=== PATIENT | female | born 1945 ===

== ENCOUNTER 2017-09-02 07:55 | Day surgery (SDC) | payer MEDICARE, BC ==
[~2017-09-02 07:55] MED LIST: Acetaminophen 1,000 MG in Premix Bag 1 BAG IV SCH; Clindamycin Phosphate in D5W 50 ML ONE; Famotidine 20 MG/2 ML SDV IVPUSH SCH; Ketorolac 15 MG/ML SDV IVPUSH SCH; Scopolamine 1.5 MG Transdermal Patch TRDERM SCH
[2017-09-02] MEDS ORDERED: Tranexamic Acid 4,000 MG in Sodium Chloride 0.9% 100 ML IV SCH (08:00)
[2017-09-02] MEDS ORDERED: Clindamycin Phosphate 900 MG/6 ML SDV IV SCH (08:00)
[2017-09-02] MEDS ORDERED: Ropivacaine 49.25 ML, Ketorolac 30 MG, EPINEPHrine 0.5 MG, cloNIDine 80 MCG in Sodium C... INJECT SCH (08:00)
[2017-09-02] MEDS: oxyCODONE ER 10 MG TAB.ER PO SCH ×2 (08:19→20:34)
[2017-09-02] MEDS ORDERED: Midazolam 1 MG/ML 2 ML SDV ONE ×3 (08:31→08:33)
[2017-09-02] MEDS ORDERED: Lidocaine 2% 5 ML SDV ONE (08:32)
[2017-09-02] MEDS ORDERED: Propofol 200 MG/20 ML SDV ONE ×4 (08:32→08:33)
[2017-09-02] MEDS ORDERED: fentaNYL 100 MCG/2 ML SDV ONE ×2 (08:33)
--- NOTE | 2017-09-02 09:59 | PCM.PREANE ---
Preanesthetic Assessment - Anesthesia/Transfusion/Family Hx Anesthesia History: Prior Anesthesia Without Reaction Family History of Anesthesia Reaction: No Intubation History: Unknown - Review of Systems General: No Symptoms Pulmonary: No Symptoms Cardiovascular: No Symptoms Gastrointestinal: No Symptoms Neurological: No Symptoms Other: Reports: None - Physical Assessment NPO Status Date: 09/01/17 NPO Status Time: 21:00 O2 Sat by Pulse Oximetry: 98 Respiratory Rate: 16 Vital Signs: Last Vital Signs Temp 36.7 C 09/02/17 08:15 Pulse 69 09/02/17 08:15 Resp 16 09/02/17 08:15 BP 128/70 09/02/17 08:15 Pulse Ox 98 09/02/17 08:15 Height: 1.65 m Weight: 71.668 kg ASA Class: 2 Mental Status: Alert & Oriented x3 Airway Class: Mallampati = 2 Dentition: Reports: Normal Dentition Thyro-Mental Finger Breadths: 3 Mouth Opening Finger Breadths: 2 ROM/Head Extension: Full Lungs: Clear to Auscultation, Normal Respiratory Effort Cardiovascular: Regular Rate, Regular Rhythm - Lab Values: Laboratory Last Values Blood Type A POSITIVE 09/02/17 08:40 Antibody Screen NEGATIVE 09/02/17 08:40 - Allergies Allergies/Adverse Reactions: Allergies Allergy/AdvReac Type Severity Reaction Status Date / Time Penicillins Allergy Hives Verified 08/29/17 08:27 - Blood Blood Available: No - Anesthesia Plan Pre-Op Medication Ordered: None - Acknowledgements Anesthesia Type Planned: Spinal (general anesthesia back-up plan) Pt an Appropriate Candidate for the Planned Anesthesia: Yes Alternatives and Risks of Anesthesia Discussed w Pt/Guardian: Yes Pt/Guardian Understands and Agrees with Anesthesia Plan: Yes PreAnesthesia Questionnaire HEENT History: Reports: Other (See Below) Other HEENT History: glasses for driving Gastrointestinal History: Reports: None Genitourinary History: Reports: None ALIGNMENT SPECIALIST History: Reports: Musculoskeletal History: Reports: Arthritis, Fracture, Osteoporosis Other Musculoskeletal History: hx fx wrist as a child Oncologic (Cancer) History: Reports: Basal Cell Carcinoma, Other (See Below) Other Oncologic History: skin cancer to back Dermatologic History: Reports: None - Past Surgical History Head Surgeries/Procedures: Reports: None HEENT Surgical History: Reports: Tonsillectomy GI Surgical History: Reports: Colonoscopy (x2) Female Surgical History: Reports: Breast Biopsy (left breast) Musculoskeletal Surgical History: Reports: Other (See Below) Other Musculoskeletal Surgeries/Procedures:: bunionectomy left foot Dermatological Surgical History: Reports: Skin Biopsy - SUBSTANCE USE Smoking Status *Q: Never Smoker Recreational Drug Use History: No - HOME MEDS Home Medications: Home Meds Calcium Carbonate/Vitamin D3 [Calcium 600 + Vit D Tablet] 1 tab PO DAILY [History] Denosumab [Prolia] 1 injection IM ASDIRECTED 08/29/17 [History] Multivitamin [Multivitamins] 1 tab PO DAILY 08/29/17 [History] - CURRENT (IN HOUSE) MEDS Current Meds: Current Medications Clindamycin Phosphate (Cleocin) 600 mg IV ONCALL [facility] Famotidine (Pepcid) 40 mg IVPUSH ONARRIVE [facility] Last Admin: 09/02/17 08:19 Dose: 40 mg Acetaminophen 1,000 mg/ Premix 100 mls @ 400 mls/hr IV ONARRIVE [facility] Last Admin: 09/02/17 08:16 Dose: 400 mls/hr Ropivacaine 49.25 ml/Ketorolac Tromethamine 30 mg/Epinephrine HCl 0.5 mg/ Clonidine HCl 80 mcg/ Sodium Chloride 100 mls @ 50 mls/sec INJECT ASDIRECTED [facility] Lactated Ringer's (Ringers, Lactated) 1,000 mls @ 100 mls/hr IV ASDIRECTED [facility] Tranexamic Acid 4,000 mg/ (Sodium Chloride) 140 mls @ 600 mls/hr IV ASDIRECTED [facility] Ketorolac Tromethamine (Toradol) 15 mg IVPUSH ONARRIVE [facility] Last Admin: 09/02/17 08:20 Dose: 15 mg Oxycodone HCl (Oxycontin) 10 mg PO ONARRIVE [facility] Last Admin: 09/02/17 08:19 Dose: 10 mg Scopolamine (Transderm-Scop) 1.5 mg TRDERM ONARRIVE [facility] Last Admin: 09/02/17 08:18 Dose: 1.5 mg Discontinued Medications Fentanyl (Sublimaze) Confirm Administered Dose 100 mcg .ROUTE .STK-MED ONE Stop: 09/02/17 08:34 Fentanyl (Sublimaze) Confirm Administered Dose 100 mcg .ROUTE .STK-MED ONE Stop: 09/02/17 08:34 Clindamycin Phosphate (Cleocin In D5w) Confirm Administered Dose 50 mls @ as directed .ROUTE .STK-MED ONE Stop: 09/02/17 06:07 Last Admin: 09/02/17 08:18 Dose: 600 mg Lidocaine (Xylocaine-Mpf 2%) Confirm Administered Dose 5 ml .ROUTE .STK-MED ONE Stop: 09/02/17 08:33 Midazolam HCl (Versed 1 Mg/Ml) Confirm Administered Dose 2 mg .ROUTE .STK-MED ONE Stop: 09/02/17 08:32 Midazolam HCl (Versed 1 Mg/Ml) Confirm Administered Dose 2 mg .ROUTE .STK-MED ONE Stop: 09/02/17 08:33 Midazolam HCl (Versed 1 Mg/Ml) Confirm Administered Dose 2 mg .ROUTE .STK-MED ONE Stop: 09/02/17 08:34 Propofol (Diprivan 20 Ml) Confirm Administered Dose 200 mg .ROUTE .STK-MED ONE Stop: 09/02/17 08:33 Propofol (Diprivan 20 Ml) Confirm Administered Dose 200 mg .ROUTE .STK-MED ONE Stop: 09/02/17 08:33 Propofol (Diprivan 20 Ml) Confirm Administered Dose 200 mg .ROUTE .STK-MED ONE Stop: 09/02/17 08:33 Propofol (Diprivan 20 Ml) Confirm Administered Dose 600 mg .ROUTE .STK-MED ONE Stop: 09/02/17 08:34 Tranexamic Acid (Cyklokapron) Confirm Administered Dose 4,000 mg .ROUTE .STK- MED ONE Stop: 09/02/17 07:25
[2017-09-02] MEDS ORDERED: Aluminum Hydroxide/Magnesium Hydroxide/Simethicone Susp 30 ML Cup PO PRN (12:29)
[2017-09-02] MEDS ORDERED: diphenhydrAMINE 50 MG/ML SDV IVPUSH PRN (12:29)
[2017-09-02] MEDS ORDERED: Ondansetron 4 MG/2 ML SDV IVPUSH PRN (12:29)
--- NOTE | 2017-09-02 12:38 | PCM.OPNOTE ---
- General Post-Op/Procedure Note Date of Surgery/Procedure: 09/02/17 Operative Procedure(s): L TKA Post-Op Diagnosis: DJD left knee Anesthesia Technique: Moderate Sedation, Spinal Primary Surgeon: Mary Herr Production Manufacturing Worker: [place] Cordero Production Manufacturing Worker: Momo Ornelas in mLs: 50 Condition: Good Free Text/Narrative:: tt=40 min #[id number]
[2017-09-02] MEDS ORDERED: Denosumab 60 MG/1 ML Syringe SUBCUT SCH (12:45)
[2017-09-02] MEDS ORDERED: Morphine PF 30 MG/30 ML PCA Vial IV SCH (12:45)
[2017-09-02] MEDS: Lactated Ringers 1,000 ML IV SCH (13:52)
--- NOTE | 2017-09-02 16:36 | CR ---
EXAMINATION: Left knee HISTORY: Lateral knee arthroplasty COMPARISON: 08/07/2017 TECHNIQUE: 2 views FINDINGS/IMPRESSION: Left total knee hardware is demonstrated in good position and alignment. Postope rative soft tissue changes noted.
[2017-09-02] MEDS: Ketorolac 15 MG/ML SDV IVPUSH SCH (19:00)
[2017-09-02] MEDS: Docusate Sodium 100 MG Cap PO SCH (20:34)
[2017-09-02] MEDS: Clindamycin Phosphate in D5W 900 MG in Premix Bag 1 BAG IV SCH ×2 (20:34)
[2017-09-03] MEDS: Ketorolac 15 MG/ML SDV IVPUSH SCH (00:09)
[2017-09-03] MEDS: oxyCODONE ER 10 MG TAB.ER PO SCH ×2 (00:11→08:47)
[2017-09-03] MEDS: Lactated Ringers 1,000 ML IV SCH (00:17)
[2017-09-03] MEDS: Clindamycin Phosphate in D5W 900 MG in Premix Bag 1 BAG IV SCH ×2 (03:39)
[2017-09-03] MEDS: Acetaminophen/HYDROcodone 325-10 MG Tab PO PRN ×2 (07:26→16:36)
--- NOTE | 2017-09-03 07:28 | PCM48HPAN ---
Post Anesthesia Note - EVALUATION WITHIN 48HRS OF ANESTHETIC Vital Signs in Normal Range: Yes Patient Participated in Evaluation: Yes Respiratory Function Stable: Yes Airway Patent: Yes Cardiovascular Function Stable: Yes Hydration Status Stable: Yes Pain Control Satisfactory: Yes Nausea and Vomiting Control Satisfactory: Yes Mental Status Recovered: Yes
[2017-09-03] MEDS ORDERED: Sodium Chloride 0.9% 10 ML Syringe FLUSH PRN (08:00)
[2017-09-03] MEDS ORDERED: Sodium Chloride 0.9% 2.5 ML Syringe FLUSH PRN (08:00)
[2017-09-03] MEDS ORDERED: Morphine 4 MG/ML Syringe IVPUSH PRN (08:00)
--- NOTE | 2017-09-03 08:02 | PCM.SURGPN ---
- General Info Date of Service: 09/03/17 Date of Surgery/Procedure: 09/02/17 POD#: 1 Functional Status: Reports: Pain Controlled, Tolerating Diet - Review of Systems General: Reports: No Symptoms Pulmonary: Reports: No Symptoms Cardiovascular: Reports: No Symptoms Gastrointestinal: Reports: Nausea Musculoskeletal: Reports: Leg Pain Systems Review Comment:: pt up to chair for breakfast some nausea - tolerating light/bland diet so far pain controlled with PO pain meds, using [employer] sparingly no specific concerns - Patient Data Vitals - Most Recent: Last Vital Signs Temp 97.5 F 09/03/17 04:00 Pulse 85 09/03/17 04:00 Resp 18 09/03/17 04:00 BP 122/50 L 09/03/17 04:00 Pulse Ox 95 09/03/17 04:00 Weight - Most Recent: 71.668 kg I&O - Last 24 Hours: Intake & Output 09/02/17 09/03/17 09/03/17 22:59 06:59 14:59 Intake Total 50 1350 Output Total 900 Balance 50 450 Lab Results Last 24 Hrs: Laboratory Results - last 24 hr 09/02/17 09/03/17 Range/Units 08:40 06:09 Hgb 12.2 (12.0-16.0) g/dL Hct 36.8 (36.0-46.0) % Blood Type A POSITIVE Antibody Screen NEGATIVE Med Orders - Current: Current Medications Hydrocodone Bitart/Acetaminophen ([place] 325-10 Mg) 1 - 2 tab PO Q4H PRN PRN Reason: Pain Last Admin: 09/03/17 07:26 Dose: 2 tab Al Hydroxide/Mg Hydroxide (Mag-Al Plus) 30 ml PO Q4H PRN PRN Reason: Indigestion Aspirin (Aspirin) 325 mg PO BID [facility] Calcium Carbonate (Caltrate 600+D 1500 Mg-400 Units) 1 tab PO DAILY [facility] Celecoxib (Celebrex) 200 mg PO BID [facility] Clindamycin Phosphate (Cleocin) 600 mg IV ONCALL [facility] Denosumab (Prolia) 60 mg SUBCUT ASDIRECTED [facility] Diphenhydramine HCl (Benadryl) 25 mg IVPUSH Q4H PRN PRN Reason: Itching Docusate Sodium (Colace) 100 mg PO BID [facility] Last Admin: 09/02/17 20:34 Dose: 100 mg Famotidine (Pepcid) 40 mg IVPUSH ONARRIVE [facility] Last Admin: 09/02/17 08:19 Dose: 40 mg Famotidine (Pepcid) 40 mg PO DAILY [facility] Acetaminophen 1,000 mg/ Premix 100 mls @ 400 mls/hr IV ONARRIVE [facility] Last Admin: 09/02/17 08:16 Dose: 400 mls/hr Ropivacaine 49.25 ml/Ketorolac Tromethamine 30 mg/Epinephrine HCl 0.5 mg/ Clonidine HCl 80 mcg/ Sodium Chloride 100 mls @ 50 mls/sec INJECT ASDIRECTED [facility] Lactated Ringer's (Ringers, Lactated) 1,000 mls @ 100 mls/hr IV ASDIRECTED [facility] Last Admin: 09/03/17 00:17 Dose: 100 mls/hr Tranexamic Acid 4,000 mg/ (Sodium Chloride) 140 mls @ 600 mls/hr IV ASDIRECTED [facility] Ketorolac Tromethamine (Toradol) 15 mg IVPUSH ONARRIVE [facility] Last Admin: 09/02/17 08:20 Dose: 15 mg Multivitamins/Minerals (Thera M Plus) 1 tab PO DAILY [facility] Ondansetron HCl (Zofran) 4 mg IVPUSH Q6H PRN PRN Reason: Nausea/Vomiting Last Admin: 09/03/17 07:28 Dose: 4 mg Oxycodone HCl (Oxycontin) 10 mg PO ONARRIVE [facility] Last Admin: 09/02/17 20:34 Dose: 10 mg Oxycodone HCl (Oxycontin) 10 mg PO BID [facility] Last Admin: 09/03/17 00:11 Dose: Not Given Scopolamine (Transderm-Scop) 1.5 mg TRDERM ONARRIVE [facility] Last Admin: 09/02/17 08:18 Dose: 1.5 mg Discontinued Medications Fentanyl (Sublimaze) Confirm Administered Dose 100 mcg .ROUTE .STK-MED ONE Stop: 09/02/17 08:34 Fentanyl (Sublimaze) Confirm Administered Dose 100 mcg .ROUTE .STK-MED ONE Stop: 09/02/17 08:34 Clindamycin Phosphate (Cleocin In D5w) Confirm Administered Dose 50 mls @ as directed .ROUTE .STK-MED ONE Stop: 09/02/17 06:07 Last Admin: 09/02/17 08:18 Dose: 600 mg Clindamycin Phosphate 900 mg/ (Premix) 50 mls @ 100 mls/hr IV Q8H [facility] Stop: 09/03/17 04:29 Last Admin: 09/03/17 03:39 Dose: 100 mls/hr Ketorolac Tromethamine (Toradol) 15 mg IVPUSH Q6H [facility] Stop: 09/03/17 04:00 Last Admin: 09/03/17 00:09 Dose: 15 mg Lidocaine (Xylocaine-Mpf 2%) Confirm Administered Dose 5 ml .ROUTE .STK-MED ONE Stop: 09/02/17 08:33 Midazolam HCl (Versed 1 Mg/Ml) Confirm Administered Dose 2 mg .ROUTE .STK-MED ONE Stop: 09/02/17 08:32 Midazolam HCl (Versed 1 Mg/Ml) Confirm Administered Dose 2 mg .ROUTE .STK-MED ONE Stop: 09/02/17 08:33 Midazolam HCl (Versed 1 Mg/Ml) Confirm Administered Dose 2 mg .ROUTE .STK-MED ONE Stop: 09/02/17 08:34 Morphine Sulfate (Morphine Shadow [employer] Weight Operator 30 Mg In 30 Ml) 30 mg IV ASDIRECTED [facility] PRN Reason: Protocol Last Admin: 09/02/17 13:07 Dose: 30 mg Propofol (Diprivan 20 Ml) Confirm Administered Dose 200 mg .ROUTE .STK-MED ONE Stop: 09/02/17 08:33 Propofol (Diprivan 20 Ml) Confirm Administered Dose 200 mg .ROUTE .STK-MED ONE Stop: 09/02/17 08:33 Propofol (Diprivan 20 Ml) Confirm Administered Dose 200 mg .ROUTE .STK-MED ONE Stop: 09/02/17 08:33 Propofol (Diprivan 20 Ml) Confirm Administered Dose 600 mg .ROUTE .STK-MED ONE Stop: 09/02/17 08:34 Tranexamic Acid (Cyklokapron) Confirm Administered Dose 4,000 mg .ROUTE .STK- MED ONE Stop: 09/02/17 07:25 - Exam Wound/Incisions: Dressing Dry and Intact General: Alert, Oriented Cardiovascular: Regular Rate, Regular Rhythm Extremities: Other (exam LLE - dressing clean/dry/intact, at/ehl/gastroc 5/5, dp 2+, sensation intact distally) Physical Findings Comment:: vss, afeb uo 1100mL hgb 12.2 - Problem List Review Problem List Initiated/Reviewed/Updated: Yes - My Orders Last 24 Hours: Active Orders 24 hr Category Date Time Status Dressing Change [Wound Care] [RC] Q12H Care 09/02/17 12:31 Active Insert Urinary Catheter [OM.PC] Q24H Care 09/02/17 08:00 Ordered Neurovascular Check [RC] Q2HR Care 09/02/17 12:31 Active RT Incentive Spirometry [RC] ASDIRECTED Care 09/02/17 12:31 Active Urinary Catheter Removal [RC] Per Unit Routine Care 09/03/17 08:00 Ordered Vital Signs [RC] Q4H Care 09/02/17 12:31 Active PT Evaluation and Treatment [CONS] Routine Cons 09/02/17 12:28 Active Regular Diet [DIET] Diet 09/02/17 Lunch Active Acetaminophen/HYDROcodone [[place] 325-10 MG] Med 09/02/17 12:29 Active 1 - 2 tab PO Q4H PRN Alum Hydrox/Mag Hydrox/Simeth [Mag-Al Plus] Med 09/02/17 12:29 Active 30 ml PO Q4H PRN Aspirin Med 09/03/17 09:00 Active 325 mg PO BID Calcium Carbonate/Vitamin D3 [Caltrate 600+D 1500 MG- Med 09/03/17 09:00 Active 400 Units] 1 tab PO DAILY Celecoxib [CeleBREX] Med 09/03/17 09:00 Active 200 mg PO BID Clindamycin Phosphate [Cleocin] Med 09/02/17 08:00 Active 600 mg IV ONCALL Denosumab [Prolia] Med 09/02/17 12:45 Pending 60 mg SUBCUT ASDIRECTED Docusate Sodium [Colace] Med 09/02/17 21:00 Active 100 mg PO BID Famotidine [Pepcid] Med 09/03/17 09:00 Active 40 mg PO DAILY Morphine Med 09/03/17 08:00 Ordered 1 - 3 mg IVPUSH Q3H PRN Multivitamins w-Iron/Ca/FA/Min [Thera M Plus] Med 09/03/17 09:00 Active 1 tab PO DAILY Ondansetron [Zofran] Med 09/02/17 12:29 Active 4 mg IVPUSH Q6H PRN Ropivacaine [Naropin 0.2%] 49.25 ml Med 09/02/17 08:00 Active Ketorolac [Toradol] 30 mg EPINEPHrine [Adrenalin] 0.5 mg cloNIDine [Duraclon] 80 mcg Sodium Chloride 0.9% [Normal Saline] 48.45 ml INJECT ASDIRECTED Sodium Chloride 0.9% [Saline Flush] Med 09/03/17 08:00 Ordered 10 ml FLUSH ASDIRECTED PRN Sodium Chloride 0.9% [Saline Flush] Med 09/03/17 08:00 Ordered 2.5 ml FLUSH ASDIRECTED PRN Tranexamic Acid [Cyklokapron] 4,000 mg Med 09/02/17 08:00 Active Sodium Chloride 0.9% [Normal Saline] 100 ml IV ASDIRECTED diphenhydrAMINE [Benadryl] Med 09/02/17 12:29 Active 25 mg IVPUSH Q4H PRN oxyCODONE ER [OxyCONTIN] Med 09/02/17 21:00 Active 10 mg PO BID Convert IV to Saline Lock [OM.PC] Routine Oth 09/03/17 08:00 Ordered Ice Therapy [OM.PC] Routine Oth 09/02/17 12:28 Ordered Medication Orders Hydrocodone Bitart/Acetaminophen ([place] 325-10 Mg) 1 - 2 tab PO Q4H PRN PRN Reason: Pain Last Admin: 09/03/17 07:26 Dose: 2 tab Al Hydroxide/Mg Hydroxide (Mag-Al Plus) 30 ml PO Q4H PRN PRN Reason: Indigestion Aspirin (Aspirin) 325 mg PO BID [facility] Calcium Carbonate (Caltrate 600+D 1500 Mg-400 Units) 1 tab PO DAILY [facility] Celecoxib (Celebrex) 200 mg PO BID [facility] Clindamycin Phosphate (Cleocin) 600 mg IV ONCALL [facility] Denosumab (Prolia) 60 mg SUBCUT ASDIRECTED [facility] Diphenhydramine HCl (Benadryl) 25 mg IVPUSH Q4H PRN PRN Reason: Itching Docusate Sodium (Colace) 100 mg PO BID [facility] Last Admin: 09/02/17 20:34 Dose: 100 mg Famotidine (Pepcid) 40 mg IVPUSH ONARRIVE [facility] Last Admin: 09/02/17 08:19 Dose: 40 mg Famotidine (Pepcid) 40 mg PO DAILY [facility] Acetaminophen 1,000 mg/ Premix 100 mls @ 400 mls/hr IV ONARRIVE [facility] Last Admin: 09/02/17 08:16 Dose: 400 mls/hr Ropivacaine 49.25 ml/Ketorolac Tromethamine 30 mg/Epinephrine HCl 0.5 mg/ Clonidine HCl 80 mcg/ Sodium Chloride 100 mls @ 50 mls/sec INJECT ASDIRECTED [facility] Lactated Ringer's (Ringers, Lactated) 1,000 mls @ 100 mls/hr IV ASDIRECTED [facility] Last Admin: 09/03/17 00:17 Dose: 100 mls/hr Infusion: 09/02/17 23:52 Dose: 100 mls/hr Admin: 09/02/17 13:52 Dose: 100 mls/hr Tranexamic Acid 4,000 mg/ (Sodium Chloride) 140 mls @ 600 mls/hr IV ASDIRECTED [facility] Ketorolac Tromethamine (Toradol) 15 mg IVPUSH ONARRIVE [facility] Last Admin: 09/02/17 08:20 Dose: 15 mg Multivitamins/Minerals (Thera M Plus) 1 tab PO DAILY [facility] Ondansetron HCl (Zofran) 4 mg IVPUSH Q6H PRN PRN Reason: Nausea/Vomiting Last Admin: 09/03/17 07:28 Dose: 4 mg Oxycodone HCl (Oxycontin) 10 mg PO ONARRIVE [facility] Last Admin: 09/02/17 20:34 Dose: 10 mg Admin: 09/02/17 08:19 Dose: 10 mg Oxycodone HCl (Oxycontin) 10 mg PO BID [facility] Last Admin: 09/03/17 00:11 Dose: Not Given Scopolamine (Transderm-Scop) 1.5 mg DER ONARRIVE [facility] Last Admin: 09/02/17 08:18 Dose: 1.5 mg - Assessment Assessment (Free Text/Narrative):: POD#1 L TKA - Plan Plan (Free Text/Narrative):: DC [employer], IV fluids, vu morphine IV for breakthrough pain PT today [id number] PO BID as DVT prophylaxis will see how pt does with PT/pain control/nausea. if pain/nausea controlled, will d/ch to home this afternoon consider adding zofran odt to d/ch meds may also consider dc'ing oxycontin will need dressing change to aquacel prior to d/ch to home
--- NOTE | 2017-09-03 08:23 | OR ---
SURGEON: Mary Herr MD DATE OF PROCEDURE: 09/02/2017 PREOPERATIVE DIAGNOSIS: Degenerative joint disease, left knee, tricompartmental. POSTOPERATIVE DIAGNOSIS: Degenerative joint disease, left knee, tricompartmental. PROCEDURE: Left total knee arthroplasty using patient-specific instrumentation. ASSISTANTS: [place] Cordero PA-C and Momo Ornelas MD, PGY3. ANESTHESIA: Spinal with sedation. ESTIMATED BLOOD LOSS: 50 mL. TOURNIQUET TIME: 40 minutes. COMPLICATIONS: None. DVT PROPHYLAXIS: PAS boot and CANDELARIO hose to the nonoperative leg. IMPLANTS USED: Salty Persona femoral component size 5 standard (LPS), tibial component size D, 11 mm all-polyethylene articular surface, and 32 mm all-polyethylene patella. INTRAOPERATIVE FINDINGS: Showed evidence of tricompartmental degenerative changes. She had complete eburnation of the bone along the lateral femoral condyle and lateral tibial plateau. No significant synovitis was noted. BRIEF HISTORY: Honey is a 72-year-old female, who has had complaint of progressive left knee pain. She had failed conservative treatment. Due to her lack of response to conservative treatment, I did recommend surgical intervention. The risks and goals of procedure were discussed with the patient and were documented preoperatively. She agreed to proceed. DESCRIPTION OF PROCEDURE: The patient was properly identified and brought to the operating room. The patient was then transferred from the operating room cart and placed on the operating table in a supine position. Anesthesia was administered by the anesthesia staff. After adequate anesthesia was obtained, a well-padded tourniquet was applied to the surgical lower extremity. Valdez catheter was placed. The lower extremity was then prepped in standard fashion using ChloraPrep solution. It was then sterilely draped. A time-out was performed to ensure correct site and procedure. Preoperative antibiotics were given along with one gram of tranexamic acid IV. The surgical site had been marked preoperatively. An Esmarch was used to exsanguinate the right lower extremity and the tourniquet was inflated. An incision was made over the anterior aspect of the knee. The subcutaneous tissues were dissected down to the level of the fascia. A medial parapatellar approach to the knee was made. A portion of the infrapatellar fat pad was then excised. The distal femur was then exposed. The femoral patient-specific cutting guide was then placed. Pins were also placed. The distal femoral cutting block was placed and the distal femoral cut was made. Instrumentation was then removed. Both Whitesides' line and the epicondylar axis were then marked with electrocautery. The 4-in-1 cutting block was placed. This was placed in a slightly externally rotated position, which corresponded well with the previously drawn lines. The cutting guide was then pinned into position. An Kuldeep wing guide was used to check the depth of resection of our anterior condylar cut and it was felt that no notching would occur. The anterior condylar cut was then made followed by the posterior condylar cut. Both the posterior chamfer and anterior chamfer cuts were then made. The cutting block was then removed along with the excess bony remnants. We then turned our attention to the tibia. The anterior cruciate ligament and posterior cruciate ligament were released and a posterior cruciate ligament retractor was placed to allow the tibia to be pulled anteriorly. The tibial patient-specific guide was then placed on the proximal tibia. This fit anatomically. The pins were then placed. The proximal tibia cutting guide was then placed and screwed into position. The proximal tibial resection was then made with care being taken to protect the patellar tendon. The bony resection was then removed. The remainder of the medial and lateral meniscus were then excised. Care was taken to protect the popliteus tendon. The tibia was then sized to the appropriate size. The distal femur was then elevated. The posterior capsule was stripped off the distal femur both medially and laterally. The posterior capsule along with the medial and lateral gutters were then injected with a standard mixture consisting of clonidine, epinephrine, Toradol, and ropivacaine unless any allergies were found preoperatively. The femoral component was then placed onto the distal femur in a slightly lateral position. This fit the femur well. A box cut was then made without difficulty. This was then removed. The tibial trial along with the polyethylene liner was then placed. The knee came easily into full extension and was stable to varus and valgus stressing both in full extension and flexion. Any additional releases were performed at this time. We then returned our attention to the patella. The patella was everted and towel clamps were used to hold the patella in position. It was resected to a 15 millimeter thickness. It was then sized to the appropriate size. It was prepared in the usual fashion after placing the predetermined size clamps. This was placed in a slightly superior and medial position. The clamp was then removed. The patellar trial button was placed. The knee was taken through a range of motion using the no-touch technique. The patella tracked centrally. A drop real was then placed to check alignment. All instruments were then removed from the knee. The tibial sizer was then placed on the tibia. The tibia was prepared in the usual fashion using the reamer and broach. This was then removed. All bony surfaces were copiously irrigated with Pulsavac solution. They were then suctioned dry. Cement was prepared on the back table in the usual manner. Once it was prepared, the bone ends were again suctioned dry. The tibia was cemented into place first. This was malleted into position. Excess cement was then cleared. The femur was then placed in a similar manner. We placed the polyethylene trial into place and the knee was brought into full extension. An axial load was placed while keeping the knee in full extension. The patella button was also cemented into position and the clamp was used to hold this in place as the cement was allowed to cure. The wound was again copiously irrigated with saline solution using a Pulsavac game preserve manager. Following this, 1 g of tranexamic acid was applied to the wound topically. After we had adequate curing of the cement, the knee was again taken through a range of motion. The size of the polyethylene was then determined. The polyethylene trial was then removed. The tibial tray was suctioned to make sure there was no remaining soft tissue or cement. Excess cement was cleared from around the edges of the prosthesis as well. The tourniquet was then deflated. We were able to observe for any excess bleeding and none was noted. Electrocautery was used to maintain hemostasis. An additional gram of tranexamic acid was given IV. The retractors were again placed and the predetermined polyethylene was then placed. This was locked into position without difficulty. The knee was again taken through a range of motion with no change from the prior exam. The fascial layer was closed with #1 Vicryl. The subcutaneous tissues were closed with 2-0 Vicryl. The skin was closed with josé luis. Xeroform gauze was placed over the wound and a bulky dressing was applied. The patient was then awakened from anesthesia and transferred back to the operating room cart. They were brought to the recovery room in stable condition. All needle and sponge counts were correct. TODD / LORA /[id number]
[2017-09-03] MEDS: Docusate Sodium 100 MG Cap PO SCH (08:48)
[2017-09-03] MEDS ORDERED: Celecoxib 100 MG Cap PO SCH (09:00)
[2017-09-03] MEDS ORDERED: Calcium Carbonate/Vitamin D3 1500 MG-400 Units Tab PO SCH (09:00)
[2017-09-03] MEDS ORDERED: Famotidine 20 MG Tab PO SCH (09:00)
[2017-09-03] MEDS ORDERED: Aspirin 325 MG Tab PO SCH (09:00)
[2017-09-03] MEDS ORDERED: Multivitamins with Iron/Calcium/Folic Acid/Minerals Tab PO SCH (09:00)
== END 2017-09-03 17:03 | disposition home or self-care (01) ==
LOC: MW.SDS 07:55 → MW.MS 13:20 → MW.SDS 09-03 17:03
PROVIDERS: ATTEND Orthopaedic Surgery
DX: M17.12 Unilateral primary osteoarthritis, left knee (principal); M81.0 Age-related osteoporosis without current pathological fracture; Z85.828 Personal history of other malignant neoplasm of skin; Z88.0 Allergy status to penicillin; Z90.89 Acquired absence of other organs; Z98.890 Other specified postprocedural states; Z79.899 Other long term (current) drug therapy
CPT/HCPCS: 27447; 36415; 73560; 85014; 85018; 86850; 86900; 86901; 97110; 97116; 97161; 97530; A9270; C1713; C1776; J0171; J0735; J1885; J2250; J2274; J2405; J2795; J3010; J7050; J7120; 01402; 88305; 88312; J2704